=== PATIENT | male | born 1955 | race Two or more races ===

== ENCOUNTER 2018-07-29 16:52 | Inpatient (IN) | payer SELFPAY ==
[~2018-07-29] VITALS: Ht 175.3 cm; Wt 75.7 kg
[2018-07-29 17:10] VITALS: BP 118/42
[2018-07-29] MEDS ORDERED: Cefepime HCl 1 GM in D5W 55 ML IVPB ONE (17:30)
[2018-07-29] MEDS ORDERED: Acetaminophen 650 MG SUPP RECTAL ONE (17:30)
[2018-07-29] MEDS ORDERED: Vancomycin 1 GM in NS 275 ML IVPB ONE (17:30)
[2018-07-29] MEDS ORDERED: NS 1000ml 1,900 ML IVLG ONE (17:30)
[2018-07-29] MEDS ORDERED: VITAMIN B-1100 MG ORAL (17:33)
[2018-07-29] MEDS ORDERED: AMIODARONE HCL200 MG ORAL (17:33)
[2018-07-29] MEDS ORDERED: DIGOXIN250 MCG ORAL (17:33)
[2018-07-29] MEDS ORDERED: ELIQUIS5 MG PO (17:33)
[2018-07-29] MEDS ORDERED: VITAMIN C500 M1 ORAL (17:33)
[2018-07-29] MEDS ORDERED: AMLODIPINE BESY10 MG ORAL (17:33)
[2018-07-29] MEDS ORDERED: FOLIC ACID1 MG ORAL (17:33)
[2018-07-29 17:50] LABS: HEMATOCRIT 37.9 % (42.0-52.0); HEMOGLOBIN 13.2 G/DL (14.2-18.0); MEAN CORPUSCULAR VOLUME 93 FL (80-99); PLATELET COUNT 191 K/UL (150-450); RED BLOOD COUNT 4.06 M/UL (4.70-6.10); RED CELL DISTRIBUTION WIDTH 12.6 % (11.6-14.8)
[2018-07-29 18:00] LABS: WHITE BLOOD COUNT 22.5 K/UL (4.8-10.8)
[2018-07-29 18:01] LABS: ANION GAP 11 mmol/L (5-15); BLOOD UREA NITROGEN 36 mg/dL (7-18); CALCIUM 9.1 MG/DL (8.5-10.1); CARBON DIOXIDE 26 MMOL/L (21-32); CHLORIDE 96 MMOL/L (98-107); CREATININE 1.8 MG/DL (0.55-1.30); POTASSIUM 3.8 MMOL/L (3.5-5.1); SODIUM 133 MMOL/L (136-145)
[2018-07-29 18:15] LABS: ALANINE AMINOTRANSFERASE 63 U/L (12-78); ALBUMIN 3.3 G/DL (3.4-5.0); ALBUMIN/GLOBULIN RATIO 0.7 (1.0-2.7); ALKALINE PHOSPHATASE 160 U/L (46-116); ASPARTATE AMINO TRANSFERASE 109 U/L (15-37); CKMB 1.6 NG/ML (0.0-3.6); CREATINE KINASE 3254 U/L (26-308)
[2018-07-29 18:34] LABS: APPEARANCE,URINE CLEAR; BILIRUBIN, URINE NEGATIVE (NEGATIVE); GLUCOSE, URINE (UA) NEGATIVE (NEGATIVE); KETONES,URINE NEGATIVE (NEGATIVE); LEUKOCYTE ESTERASE ,URINE NEGATIVE (NEGATIVE); NITRITE,URINE NEGATIVE (NEGATIVE); PH,URINE 5 (4.5-8.0); PROTEIN,URINE 1+ (NEGATIVE); UROBILINOGEN,URINE 1 MG/DL (0.0-1.0)
[2018-07-29 18:36] LABS: COLOR,URINE YELLOW
[2018-07-29 18:47] VITALS: BP 123/40
[2018-07-29 19:31] VITALS: BP 119/47
[2018-07-29] MEDS ORDERED: DOCUSATE SODIU250 MG ORAL (19:40)
--- NOTE | 2018-07-29 20:47 | Emergency Room Report ---
History of Present Illness General Chief Complaint: Fever Source: Patient, Medical Record Present Illness HPI This patient presents from a intermediate facility. The patient was found to have a temp of 103 at the intermediate facility. He also underwent lab work there and was found to have an elevated white blood cell count. The patient himself has no complaints. He has had an intermittent cough but otherwise feels well. He denies chest pain or shortness of breath. He denies abdominal pain. He denies dysuria or hematuria. He has no other complaints. Allergies: Coded Allergies: No Known Allergies (Unverified , 07/29/18) Patient History Past Medical History: see triage record, HTN, CAD, AFib, dementia Social History: Denies: smoking, alcohol use, drug use Reviewed Nursing Documentation: PMH: Agreed; PSxH: Agreed Nursing Documentation-PMH Past Medical History: No History, Except For Hx Cardiac Problems: No - a-fib, muscle weakness, non-pressure chronic ulcer oth R Hx Hypertension: Yes - anemia Review of Systems All Other Systems: negative except mentioned in HPI Physical Exam Vital Signs Date Time Temp Pulse Resp B/P (MAP) Pulse Ox O2 Delivery O2 Flow Rate FiO2 07/29/18 16:49 102.6 60 20 121/55 95 Room Air Sp02 EP Interpretation: reviewed, normal General Appearance: no apparent distress, alert, GCS 15, non-toxic Head: normocephalic, atraumatic Eyes: bilateral eye normal inspection, bilateral eye PERRL ENT: hearing grossly normal, normal pharynx, no angioedema, normal voice Neck: full range of motion, supple/symm/no masses Respiratory: chest non-tender, lungs clear, normal breath sounds, no respiratory distress, no retraction, no accessory muscle use, speaking full sentences Cardiovascular #1: regular rate, rhythm, no edema Gastrointestinal: normal bowel sounds, non tender, soft, non-distended, no guarding, no rebound Rectal: deferred Musculoskeletal: back normal, normal range of motion, swelling - LLE w/ edema, erythema and warmth from foot through just below L. knee. Neurologic: alert, oriented x3, responsive, motor strength/tone normal, sensory intact, speech normal Psychiatric: judgement/insight normal, memory normal, mood/affect normal, no suicidal/homicidal ideation Skin: warm/dry, well hydrated, other - See above in MSK. Medical Decision Making Diagnostic Impression: Primary Impression: Cellulitis Additional Impressions: Sepsis Elevated troponin LYDIA (acute kidney injury) Lactic acidosis ER Course This patient is found to have a left lower extremity cellulitis. He has an elevated white blood cell count, elevated troponin and a lactic acidosis. The patient is given aggressive IV fluids and broad-spectrum antibiotics. He does have an elevated troponin which I suspect is a demand ischemia. EKG shows atrial fibrillation with nonspecific ST segment abnormalities. This patient is admitted for further monitoring, evaluation and treatment. This patient is critically ill. This patient required complex medical decision- making, aggressive intervention, extensive laboratory workup and monitoring. Critical care time: 40 minutes. Laboratory Tests Test 07/29/18 17:20 07/29/18 18:00 White Blood Count 22.5 K/UL (4.8-10.8) *H Red Blood Count 4.06 M/UL (4.70-6.10) L Hemoglobin 13.2 G/DL (14.2-18.0) L Hematocrit 37.9 % (42.0-52.0) L Mean Corpuscular Volume 93 FL (80-99) Mean Corpuscular Hemoglobin 32.5 PG (27.0-31.0) H Mean Corpuscular Hemoglobin Concent 34.9 G/DL (32.0-36.0) Red Cell Distribution Width 12.6 % (11.6-14.8) Platelet Count 191 K/UL (150-450) Mean Platelet Volume 7.9 FL (6.5-10.1) Neutrophils (%) (Auto) % (45.0-75.0) Lymphocytes (%) (Auto) % (20.0-45.0) Monocytes (%) (Auto) % (1.0-10.0) Eosinophils (%) (Auto) % (0.0-3.0) Basophils (%) (Auto) % (0.0-2.0) Differential Total Cells Counted 100 Neutrophils % (Manual) 80 % (45-75) H Lymphocytes % (Manual) 3 % (20-45) L Monocytes % (Manual) 5 % (1-10) Eosinophils % (Manual) 0 % (0-3) Basophils % (Manual) 0 % (0-2) Band Neutrophils 12 % (0-8) H Platelet Estimate Adequate Platelet Morphology Normal Red Blood Cell Morphology Normal Sodium Level 133 MMOL/L (136-145) L Potassium Level 3.8 MMOL/L (3.5-5.1) Chloride Level 96 MMOL/L (98-107) L Carbon Dioxide Level 26 MMOL/L (21-32) Anion Gap 11 mmol/L (5-15) Blood Urea Nitrogen 36 mg/dL (7-18) H Creatinine 1.8 MG/DL (0.55-1.30) H Estimate Glomerular Filtration Rate 38.1 mL/min (>60) Glucose Level 113 MG/DL (74-106) H Lactic Acid Level 2.90 mmol/L (0.4-2.0) H Calcium Level 9.1 MG/DL (8.5-10.1) Total Bilirubin 1.0 MG/DL (0.2-1.0) Aspartate Amino Transferase (AST) 109 U/L (15-37) H Alanine Aminotransferase (ALT) 63 U/L (12-78) Alkaline Phosphatase 160 U/L (46-116) H Total Creatine Kinase 3254 U/L (26-308) H Creatine Kinase MB 1.6 NG/ML (0.0-3.6) Creatine Kinase MB Relative Index 0.0 Troponin I 0.355 ng/mL (0.000-0.056) Total Protein 8.3 G/DL (6.4-8.2) H Albumin 3.3 G/DL (3.4-5.0) L Globulin 5.0 g/dL Albumin/Globulin Ratio 0.7 (1.0-2.7) L Urine Color Yellow Urine Appearance Clear Urine pH 5 (4.5-8.0) Urine Specific [place] 1.015 (1.005-1.035) Urine Protein 1+ (NEGATIVE) H Urine Glucose (UA) Negative (NEGATIVE) Urine Ketones Negative (NEGATIVE) Urine Blood 1+ (NEGATIVE) H Urine Nitrite Negative (NEGATIVE) Urine Bilirubin Negative (NEGATIVE) Urine Urobilinogen 1 MG/DL (0.0-1.0) H Urine Leukocyte Esterase Negative (NEGATIVE) Urine RBC 0-2 /HPF (0 - 0) H Urine WBC 0-2 /HPF (0 - 0) Urine Squamous Epithelial Cells Occasional /LPF Urine Bacteria None /HPF (NONE) Microbiology Date/Time Source Procedure Growth Status 07/29/18 17:20 Nasal Nares Influenza Types A,B Antigen (SAHIL) - Final Complete EKG Diagnostic Results Rate: normal Rhythm: other - A.fib ST Segments: other - flipped T waves and NSST findings. Rhythm Strip Diag. Results EP Interpretation: yes Rate: 60's Rhythm: no PVC's, no ectopy Chest X-Ray Diagnostic Results Chest X-Ray Diagnostic Results : Chest X-Ray Ordered: Yes # of Views/Limited/Complete: 1 View Indication: Other EP Interpretation: Yes Interpretation: no consolidation, no effusion, no acute cardiopulmonary disease Impression: No acute disease Electronically Signed by: Hunter Peters Last Vital Signs Date Time Temp Pulse Resp B/P (MAP) Pulse Ox O2 Delivery O2 Flow Rate FiO2 07/29/18 19:31 99.8 54 22 119/47 97 Room Air Disposition: ADMITTED INPATIENT Condition: Critical Referrals: Randy Dietz MD (PCP) Anna Peters DO Jul 29, 2018 20:47
[2018-07-29 21:40] VITALS: BP 117/52
--- NOTE | 2018-07-29 22:41 | Infectious Diseases Prog Note ---
Assessment/Plan Problems: (1) Cellulitis Assessment & Plan: will start vancomycin and zosyn empirically to cover sepsis , recommend wound care consult (2) Sepsis Assessment & Plan: due to the above , will start vancomycin and zosyn empirically pending blood culture (3) LYDIA (acute kidney injury) Assessment & Plan: due to the above , continue hydration with renally dosed meds as per pharmacy (4) Lactic acidosis Assessment & Plan: due to the above, continue hydration , monitor labs Subjective Allergies: Coded Allergies: No Known Allergies (Unverified , 07/29/18) Objective Vital Signs Last 24 Hour Vital Signs Date Time Temp Pulse Resp B/P (MAP) Pulse Ox O2 Delivery O2 Flow Rate FiO2 07/29/18 19:31 99.8 54 22 119/47 97 Room Air 07/29/18 18:55 101.8 07/29/18 18:47 101.8 60 17 123/40 97 Room Air 07/29/18 17:10 102.5 62 15 118/42 98 Room Air 07/29/18 16:55 62 15 Room Air 07/29/18 16:49 102.6 60 20 121/55 95 Room Air Height (Feet): 5 Height (Inches): 1.00 Weight (Pounds): 140 Microbiology Date/Time Source Procedure Growth Status 07/29/18 17:20 Nasal Nares Influenza Types A,B Antigen (SAHIL) - Final Complete Laboratory Tests Test 07/29/18 17:20 07/29/18 18:00 White Blood Count 22.5 K/UL (4.8-10.8) *H Red Blood Count 4.06 M/UL (4.70-6.10) L Hemoglobin 13.2 G/DL (14.2-18.0) L Hematocrit 37.9 % (42.0-52.0) L Mean Corpuscular Volume 93 FL (80-99) Mean Corpuscular Hemoglobin 32.5 PG (27.0-31.0) H Mean Corpuscular Hemoglobin Concent 34.9 G/DL (32.0-36.0) Red Cell Distribution Width 12.6 % (11.6-14.8) Platelet Count 191 K/UL (150-450) Mean Platelet Volume 7.9 FL (6.5-10.1) Neutrophils (%) (Auto) % (45.0-75.0) Lymphocytes (%) (Auto) % (20.0-45.0) Monocytes (%) (Auto) % (1.0-10.0) Eosinophils (%) (Auto) % (0.0-3.0) Basophils (%) (Auto) % (0.0-2.0) Differential Total Cells Counted 100 Neutrophils % (Manual) 80 % (45-75) H Lymphocytes % (Manual) 3 % (20-45) L Monocytes % (Manual) 5 % (1-10) Eosinophils % (Manual) 0 % (0-3) Basophils % (Manual) 0 % (0-2) Band Neutrophils 12 % (0-8) H Platelet Estimate Adequate Platelet Morphology Normal Red Blood Cell Morphology Normal Sodium Level 133 MMOL/L (136-145) L Potassium Level 3.8 MMOL/L (3.5-5.1) Chloride Level 96 MMOL/L (98-107) L Carbon Dioxide Level 26 MMOL/L (21-32) Anion Gap 11 mmol/L (5-15) Blood Urea Nitrogen 36 mg/dL (7-18) H Creatinine 1.8 MG/DL (0.55-1.30) H Estimat Glomerular Filtration Rate 38.1 mL/min (>60) Glucose Level 113 MG/DL (74-106) H Lactic Acid Level 2.90 mmol/L (0.4-2.0) H Calcium Level 9.1 MG/DL (8.5-10.1) Total Bilirubin 1.0 MG/DL (0.2-1.0) Aspartate Amino Transf (AST/SGOT) 109 U/L (15-37) H Alanine Aminotransferase (ALT/SGPT) 63 U/L (12-78) Alkaline Phosphatase 160 U/L (46-116) H Total Creatine Kinase 3254 U/L (26-308) H Creatine Kinase MB 1.6 NG/ML (0.0-3.6) Creatine Kinase MB Relative Index 0.0 Troponin I 0.355 ng/mL (0.000-0.056) Total Protein 8.3 G/DL (6.4-8.2) H Albumin 3.3 G/DL (3.4-5.0) L Globulin 5.0 g/dL Albumin/Globulin Ratio 0.7 (1.0-2.7) L Urine Color Yellow Urine Appearance Clear Urine pH 5 (4.5-8.0) Urine Specific [place] 1.015 (1.005-1.035) Urine Protein 1+ (NEGATIVE) H Urine Glucose (UA) Negative (NEGATIVE) Urine Ketones Negative (NEGATIVE) Urine Blood 1+ (NEGATIVE) H Urine Nitrite Negative (NEGATIVE) Urine Bilirubin Negative (NEGATIVE) Urine Urobilinogen 1 MG/DL (0.0-1.0) H Urine Leukocyte Esterase Negative (NEGATIVE) Urine RBC 0-2 /HPF (0 - 0) H Urine WBC 0-2 /HPF (0 - 0) Urine Squamous Epithelial Cells Occasional /LPF Urine Bacteria None /HPF (NONE) Beverley Danielson M.D. Jul 29, 2018 22:41
[2018-07-29] MEDS ORDERED: Morphine Sulfate 2mg/ml Inj IVP PRN (23:00)
[2018-07-30] VITALS: BP 114/50
[2018-07-30 04:00] VITALS: BP 147/65
[2018-07-30] MEDS ORDERED: Piperacillin/Tazobactam 2.25 GM in NS 55 ML IV SCH (06:00)
[2018-07-30] MEDS ORDERED: Piperacillin/Tazobactam 3.375 GM in D5W 110 ML IVPB SCH (06:00)
[2018-07-30] MEDS: Piperacillin/Tazobactam 3.375 GM in NS 110 ML IVPB SCH ×3 (06:09→23:01)
[2018-07-30 06:49] LABS: HEMATOCRIT 35.1 % (42.0-52.0); HEMOGLOBIN 12.1 G/DL (14.2-18.0); MEAN CORPUSCULAR VOLUME 92 FL (80-99); PLATELET COUNT 151 K/UL (150-450); RED BLOOD COUNT 3.82 M/UL (4.70-6.10); RED CELL DISTRIBUTION WIDTH 12.9 % (11.6-14.8); WHITE BLOOD COUNT 17.1 K/UL (4.8-10.8)
[2018-07-30 07:11] LABS: ALANINE AMINOTRANSFERASE 69 U/L (12-78); ALBUMIN 2.6 G/DL (3.4-5.0); ALBUMIN/GLOBULIN RATIO 0.6 (1.0-2.7); ALKALINE PHOSPHATASE 122 U/L (46-116); ANION GAP 6 mmol/L (5-15); ASPARTATE AMINO TRANSFERASE 116 U/L (15-37); BILIRUBIN,TOTAL 0.8 MG/DL (0.2-1.0); BLOOD UREA NITROGEN 24 mg/dL (7-18); CALCIUM 8.2 MG/DL (8.5-10.1); CARBON DIOXIDE 27 MMOL/L (21-32); CHLORIDE 106 MMOL/L (98-107); CHOLESTEROL 127 MG/DL (< 200); CREATININE 1.3 MG/DL (0.55-1.30); HDL CHOLESTEROL 47 MG/DL (40-60); POTASSIUM 3.6 MMOL/L (3.5-5.1); SODIUM 139 MMOL/L (136-145); TRIGLYCERIDES 55 MG/DL (30-150)
[2018-07-30 08:00] VITALS: BP 139/68
[2018-07-30] MEDS ORDERED: Aspirin Baby 81mg NG SCH (09:00)
[2018-07-30] MEDS ORDERED: Heparin 5000 units/ml inj SUBQ SCH (09:00)
[2018-07-30] MEDS: Aspirin Baby 81mg ORAL SCH (09:05)
[2018-07-30] MEDS: Thiamine 100mg tab ORAL SCH (09:05)
[2018-07-30] MEDS: Docusate 250mg cap ORAL SCH ×2 (09:06→17:03)
[2018-07-30] MEDS: Eliquis 2.5mg tablet ORAL SCH ×2 (09:06→17:03)
[2018-07-30] MEDS: Amiodarone 200mg tab ORAL SCH ×2 (09:06→20:46)
[2018-07-30] MEDS: Ascorbic Acid 500mg tab ORAL SCH ×2 (09:07→17:02)
--- NOTE | 2018-07-30 11:07 | Diagnostic Imaging Report ---
Indication: Dyspnea Comparison: None A single view chest radiograph was obtained. Findings: No definite infiltrate or pulmonary vascular congestion identified. Lung volumes are low which limits evaluation. The heart is enlarged. The bones are osteopenic. Impression: No acute disease
[2018-07-30 12:00] VITALS: BP 101/46
--- NOTE | 2018-07-30 12:48 | History & Physical ---
History and Physical History & Physicial patient is seen and examined. Dict completed Randy Dietz MD Jul 30, 2018 12:48
--- NOTE | 2018-07-30 15:15 | History and Physical Report ---
DATE OF ADMISSION: 07/29/2018 SOURCE OF INFORMATION: The patient and EMR. HISTORY OF PRESENT ILLNESS: The patient is a pleasant 63-year-old [place] male. The patient reported with the high fever, was transferred from the alf regarding the concerns for fever. Initial evaluation in the emergency room shows that the patient had a leukocyte count of 22. The patient was managed according to sepsis protocol. At the time of evaluation, the patient denies any chest pain or shortness of breath. Complaining of diffuse swelling on the lower extremities. The patient denies any chest pain or shortness of breath. No nausea. No vomiting. No diarrhea. ALLERGIES: NKDA. PAST SURGICAL HISTORY: Denies. PAST MEDICAL HISTORY: Atrial fibrillation and anemia. FAMILY HISTORY: Reviewed and noncontributory. MEDICATIONS: Current hospital medications including, but not limited to, Tylenol, amiodarone, amlodipine, Eliquis, aspirin, digoxin, and morphine p.r.n. PHYSICAL EXAMINATION: VITAL SIGNS: Blood pressure , temperature 98.2, pulse oximetry 98% on room air, pulse rate 55, and respiratory rate 18. HEAD AND NECK: Atraumatic and normocephalic. CHEST: Clear to auscultation. HEART: S1 and S2. Regular rate and rhythm. ABDOMEN: Soft. No organomegaly. MUSCULOSKELETAL: No gross lateralized motor deficits. Positive for diffuse erythema in the lower extremities. NEUROLOGIC: Awake, alert, and oriented x3. LABORATORY DATA: Dated July 29, 2018, shows WBC 22, hemoglobin 13.2, platelet count of 190. Sodium 139, potassium 3.6, BUN 24, creatinine 1.3. Troponin of 0.3. ASSESSMENT AND PLAN: 1. Sepsis likely lower extremity cellulitis. 2. Abnormal troponin possibly of non-ST NV cannot be excluded. 3. History of paroxysmal atrial fibrillation. Continue with the outpatient medication. 4. Anemia. 5. Hypertension. 6. GI and DVT prophylaxis. PLAN OF CARE: We will continue with the oral anticoagulation. We will continue with serial troponin measurements. We will obtain a 2D echo. Cardiology, Dr. Florian, consulted. Will follow up. Randy Dietz M.D. DR: RAY JOB#: [id number] CC:
[2018-07-30 16:00] VITALS: BP 112/50
--- NOTE | 2018-07-30 16:13 | Infectious Diseases Prog Note ---
Assessment/Plan Problems: (1) Cellulitis Assessment & Plan: continue vancomycin and zosyn empirically to cover sepsis, continue local wound care as per hospital protocol (2) Sepsis Assessment & Plan: with gram positive cocci in chains , due to the above , continue vancomycin and zosyn empirically pending blood culture (3) LYDIA (acute kidney injury) Assessment & Plan: due to the above , continue hydration with renally dosed meds as per pharmacy (4) Lactic acidosis Assessment & Plan: due to the above, continue hydration , monitor labs Subjective Constitutional: Reports: no symptoms HEENT: Reports: no symptoms Respiratory: Reports: no symptoms Breasts: Reports: no symptoms Cardiovascular: Reports: no symptoms Genitourinary: Reports: no symptoms Neurologic: Reports: no symptoms Psychiatric: Reports: no symptoms Skin: Reports: ulcer Endocrine: Reports: no symptoms Hematologic: Reports: no symptoms Allergies: Coded Allergies: No Known Allergies (Unverified , 07/29/18) Objective Vital Signs Last 24 Hour Vital Signs Date Time Temp Pulse Resp B/P (MAP) Pulse Ox O2 Delivery O2 Flow Rate FiO2 07/30/18 12:00 97.0 75 20 101/46 (64) 98 07/30/18 12:00 57 07/30/18 09:09 61 07/30/18 09:06 61 139/68 07/30/18 09:00 Nasal Cannula 2.0 07/30/18 08:00 98.0 61 20 139/68 (91) 98 07/30/18 08:00 58 07/30/18 04:00 58 07/30/18 04:00 99.2 59 20 147/65 (92) 96 07/30/18 00:00 53 07/30/18 00:00 98.2 52 20 114/50 (71) 97 07/29/18 23:33 Nasal Cannula 2.0 07/29/18 21:58 55 07/29/18 21:40 99.0 56 20 117/52 (73) 95 07/29/18 21:30 99.8 54 22 119/97 97 Room Air 07/29/18 19:31 99.8 54 22 119/47 97 Room Air 07/29/18 18:55 101.8 07/29/18 18:47 101.8 60 17 123/40 97 Room Air 07/29/18 17:10 102.5 62 15 118/42 98 Room Air 07/29/18 16:55 62 15 Room Air 07/29/18 16:49 102.6 60 20 121/55 95 Room Air Height (Feet): 5 Height (Inches): 9.00 Weight (Pounds): 167 General Appearance: WD/WN, no acute distress HEENT: normocephalic, atraumatic, anicteric, mucous membranes moist Respiratory/Chest: chest wall non-tender, lungs clear, normal breath sounds, no respiratory distress, no accessory muscle use Cardiovascular: normal peripheral pulses, normal rate, regular rhythm, no gallop/murmur, no JVD Abdomen: normal bowel sounds, soft, non tender, no organomegaly, non distended , no mass, no scars Extremities: no cyanosis, no clubbing Skin: no rash, ulcers Microbiology Date/Time Source Procedure Growth Status 07/29/18 17:25 Blood Blood Culture - Preliminary Resulted 07/29/18 17:20 Blood Blood Culture - Preliminary Resulted 07/29/18 17:20 Nasal Nares Influenza Types A,B Antigen (SAHIL) - Final Complete Laboratory Tests Test 07/29/18 17:20 07/29/18 18:00 07/30/18 06:20 07/30/18 11:50 White Blood Count 22.5 K/UL (4.8-10.8) *H 17.1 K/UL (4.8-10.8) H Red Blood Count 4.06 M/UL (4.70-6.10) L 3.82 M/UL (4.70-6.10) L Hemoglobin 13.2 G/DL (14.2-18.0) L 12.1 G/DL (14.2-18.0) L Hematocrit 37.9 % (42.0-52.0) L 35.1 % (42.0-52.0) L Mean Corpuscular Volume 93 FL (80-99) 92 FL (80-99) Mean Corpuscular Hemoglobin 32.5 PG (27.0-31.0) H 31.7 PG (27.0-31.0) H Mean Corpuscular Hemoglobin Concent 34.9 G/DL (32.0-36.0) 34.5 G/DL (32.0-36.0) Red Cell Distribution Width 12.6 % (11.6-14.8) 12.9 % (11.6-14.8) Platelet Count 191 K/UL (150-450) 151 K/UL (150-450) Mean Platelet Volume 7.9 FL (6.5-10.1) 7.8 FL (6.5-10.1) Neutrophils (%) (Auto) % (45.0-75.0) % (45.0-75.0) Lymphocytes (%) (Auto) % (20.0-45.0) % (20.0-45.0) Monocytes (%) (Auto) % (1.0-10.0) % (1.0-10.0) Eosinophils (%) (Auto) % (0.0-3.0) % (0.0-3.0) Basophils (%) (Auto) % (0.0-2.0) % (0.0-2.0) Differential Total Cells Counted 100 100 Neutrophils % (Manual) 80 % (45-75) H 87 % (45-75) H Lymphocytes % (Manual) 3 % (20-45) L 4 % (20-45) L Monocytes % (Manual) 5 % (1-10) 4 % (1-10) Eosinophils % (Manual) 0 % (0-3) 0 % (0-3) Basophils % (Manual) 0 % (0-2) 0 % (0-2) Band Neutrophils 12 % (0-8) H 5 % (0-8) Platelet Estimate Adequate Adequate Platelet Morphology Normal Normal Red Blood Cell Morphology Normal Normal Sodium Level 133 MMOL/L (136-145) L 139 MMOL/L (136-145) Potassium Level 3.8 MMOL/L (3.5-5.1) 3.6 MMOL/L (3.5-5.1) Chloride Level 96 MMOL/L (98-107) L 106 MMOL/L (98-107) Carbon Dioxide Level 26 MMOL/L (21-32) 27 MMOL/L (21-32) Anion Gap 11 mmol/L (5-15) 6 mmol/L (5-15) Blood Urea Nitrogen 36 mg/dL (7-18) H 24 mg/dL (7-18) H Creatinine 1.8 MG/DL (0.55-1.30) H 1.3 MG/DL (0.55-1.30) Estimat Glomerular Filtration Rate 38.1 mL/min (>60) 55.4 mL/min (>60) Glucose Level 113 MG/DL (74-106) H 101 MG/DL (74-106) Lactic Acid Level 2.90 mmol/L (0.4-2.0) H Calcium Level 9.1 MG/DL (8.5-10.1) 8.2 MG/DL (8.5-10.1) L Total Bilirubin 1.0 MG/DL (0.2-1.0) 0.8 MG/DL (0.2-1.0) Aspartate Amino Transf (AST/SGOT) 109 U/L (15-37) H 116 U/L (15-37) H Alanine Aminotransferase (ALT/SGPT) 63 U/L (12-78) 69 U/L (12-78) Alkaline Phosphatase 160 U/L (46-116) H 122 U/L (46-116) H Total Creatine Kinase 3254 U/L (26-308) H Creatine Kinase MB 1.6 NG/ML (0.0-3.6) Creatine Kinase MB Relative Index 0.0 Troponin I 0.355 ng/mL (0.000-0.056) 0.219 ng/mL (0.000-0.056) 0.149 ng/mL (0.000-0.056) Total Protein 8.3 G/DL (6.4-8.2) H 6.8 G/DL (6.4-8.2) Albumin 3.3 G/DL (3.4-5.0) L 2.6 G/DL (3.4-5.0) L Globulin 5.0 g/dL 4.2 g/dL Albumin/Globulin Ratio 0.7 (1.0-2.7) L 0.6 (1.0-2.7) L Urine Color Yellow Urine Appearance Clear Urine pH 5 (4.5-8.0) Urine Specific [place] 1.015 (1.005-1.035) Urine Protein 1+ (NEGATIVE) H Urine Glucose (UA) Negative (NEGATIVE) Urine Ketones Negative (NEGATIVE) Urine Blood 1+ (NEGATIVE) H Urine Nitrite Negative (NEGATIVE) Urine Bilirubin Negative (NEGATIVE) Urine Urobilinogen 1 MG/DL (0.0-1.0) H Urine Leukocyte Esterase Negative (NEGATIVE) Urine RBC 0-2 /HPF (0 - 0) H Urine WBC 0-2 /HPF (0 - 0) Urine Squamous Epithelial Cells Occasional /LPF Urine Bacteria None /HPF (NONE) Hemoglobin A1c 5.7 % (4.3-6.0) Triglycerides Level 55 MG/DL (30-150) Cholesterol Level 127 MG/DL (< 200) LDL Cholesterol 73 mg/dL (<100) HDL Cholesterol 47 MG/DL (40-60) Cholesterol/HDL Ratio 2.7 (3.3-4.4) L Current Medications Medications (Trade) Dose Ordered Sig/Gomez Route PRN Reason Start Time Stop Time Status Last Admin Dose Admin Acetaminophen (Tylenol) 650 mg Q4H PRN ORAL Mild Pain/Temp > 100.5 07/29/18 23:00 08/28/18 22:59 07/30/18 06:52 Amiodarone HCl (Cordarone) 200 mg EVERY 12 HOURS ORAL 07/30/18 09:00 08/29/18 08:59 07/30/18 09:06 Amlodipine Besylate (Norvasc) 10 mg DAILY ORAL 07/30/18 09:00 08/29/18 08:59 07/30/18 09:06 Apixaban (Eliquis) 5 mg BID ORAL 07/30/18 09:00 08/29/18 08:59 07/30/18 09:06 Ascorbic Acid (Vitamin C) 500 mg TWICE A DAY ORAL 07/30/18 09:00 08/29/18 08:59 07/30/18 09:07 Aspirin (ASA) 81 mg DAILY ORAL 07/30/18 09:00 08/29/18 08:59 07/30/18 09:05 Digoxin (Lanoxin) 0.25 mg DAILY ORAL 07/30/18 09:00 08/29/18 08:59 07/30/18 09:09 Docusate Sodium (Colace) 250 mg TWICE A DAY ORAL 07/30/18 09:00 08/29/18 08:59 07/30/18 09:06 Folic Acid (Folate) 1 mg DAILY ORAL 07/30/18 09:00 08/29/18 08:59 07/30/18 09:07 Morphine Sulfate (Morphine Sulfate) 2 mg Q8HR PRN IVP For Pain 07/29/18 23:00 08/05/18 22:59 Pantoprazole (Protonix) 40 mg DAILY ORAL 07/30/18 09:00 08/29/18 08:59 07/30/18 09:06 Piperacillin Sod/ Tazobactam Sod 3.375 gm/Sodium Chloride 110 ml @ 27.5 mls/hr EVERY 8 HOURS IVPB 07/30/18 06:00 08/04/18 05:59 07/30/18 13:30 Thiamine HCl (Vitamin B1) 100 mg DAILY ORAL 07/30/18 09:00 08/29/18 08:59 07/30/18 09:05 Beverley Danielson M.D. Jul 30, 2018 16:13
[2018-07-30] MEDS ORDERED: Vancomycin 1250mg/D5W 250ml 250 ML IVPB SCH (17:30)
--- NOTE | 2018-07-30 19:15 | Consultation ---
DATE OF CONSULTATION: 07/30/2018 INFECTIOUS DISEASE CONSULTATION CONSULTING PHYSICIAN: Beverley Danielson M.D. REFERRING PHYSICIAN: Randy Dietz M.D. REASON FOR CONSULTATION: Left leg cellulitis complicated with sepsis. Recommendation for antibiotics treatment. HISTORY OF PRESENT ILLNESS: The patient is a 63-year-old male with past medical history of atrial fibrillation and anemia, who was brought in from his [facility] for concern of fever. The patient was found to have significant leukocytosis in the emergency room concerning for sepsis and his skin showed left posterior heel wound with cellulitis on the left side, most likely the source, so the patient was started on sepsis protocol and IV antibiotics, and Infectious Disease consultation was requested for antibiotics treatment and further management. REVIEW OF SYSTEMS: A 14-point of systems reviewed, were all negative. PAST MEDICAL HISTORY: Atrial fibrillation and anemia. PAST SURGICAL HISTORY: Negative. ALLERGIES: No known drug allergy. MEDICATIONS: The patient received vancomycin and cefepime in the emergency room. For rest of his medications, please refer to MAR. LABORATORY DATA: White count 22,500, hemoglobin 13.2, and platelet count 191,000. BUN 24, creatinine 1.3. Lactic acid 2.9. Urinalysis is negative for infection. Microbiology - blood culture x2 pending and influenza A and B type negative. Imaging - chest x-ray showed no acute disease. PHYSICAL EXAMINATION: VITAL SIGNS: Temperature 101.8, pulse 60, respirations 17, and blood pressure 123/40. Pulse ox 97% on room air. GENERAL: A middle-aged male, lying in bed, awake, alert, pleasant, not in acute distress. HEENT: Normocephalic and atraumatic. Pupils are reactive to light. Moist oral mucosa. NECK: Supple. CARDIOVASCULAR: Regular rate and rhythm. No murmur. LUNGS: Clear bilaterally. No wheezing or rhonchi. ABDOMEN: Soft, nontender, and nondistended. EXTREMITIES: He has cellulitis mainly on the left lower leg and ankle with left posterior foot skin wound draining purulent material. ASSESSMENT AND RECOMMENDATION: 1. Cellulitis of the left lower extremity. We will start vancomycin and Zosyn empiric coverage to cover for sepsis pending blood culture. Recommend wound care consult. 2. Sepsis with leukocytosis due to the above. We will start vancomycin and Zosyn empiric coverage pending blood culture. 3. Acute kidney failure due to sepsis and dehydration. Continue IV fluid and renally dose medicine as per pharmacy. 4. Lactic acidosis due to the above. Continue hydration, monitor labs. Thank you for the consult. ID will continue to follow. Beverley Danielson M.D. DR: ELDER JOB#: [id number] CC:
--- NOTE | 2018-07-30 19:30 | Cardiology Progress Note ---
Assessment/Plan Assessment/Plan The patient is seen and examined, full consult note will be dictated shortly. Objective Last 24 Hour Vital Signs Date Time Temp Pulse Resp B/P (MAP) Pulse Ox O2 Delivery O2 Flow Rate FiO2 07/30/18 16:00 98.3 52 18 112/50 (70) 99 07/30/18 16:00 53 07/30/18 12:00 97.0 75 20 101/46 (64) 98 07/30/18 12:00 57 07/30/18 09:09 61 07/30/18 09:06 61 139/68 07/30/18 09:00 Nasal Cannula 2.0 07/30/18 08:00 98.0 61 20 139/68 (91) 98 07/30/18 08:00 58 07/30/18 04:00 58 07/30/18 04:00 99.2 59 20 147/65 (92) 96 07/30/18 00:00 53 07/30/18 00:00 98.2 52 20 114/50 (71) 97 07/29/18 23:33 Nasal Cannula 2.0 07/29/18 21:58 55 07/29/18 21:40 99.0 56 20 117/52 (73) 95 07/29/18 21:30 99.8 54 22 119/97 97 Room Air 07/29/18 19:31 99.8 54 22 119/47 97 Room Air Intake and Output 07/29/18 07/30/18 19:00 07:00 # Voids 1 1 Laboratory Tests Test 07/30/18 06:20 07/30/18 11:50 White Blood Count 17.1 K/UL (4.8-10.8) H Red Blood Count 3.82 M/UL (4.70-6.10) L Hemoglobin 12.1 G/DL (14.2-18.0) L Hematocrit 35.1 % (42.0-52.0) L Mean Corpuscular Volume 92 FL (80-99) Mean Corpuscular Hemoglobin 31.7 PG (27.0-31.0) H Mean Corpuscular Hemoglobin Concent 34.5 G/DL (32.0-36.0) Red Cell Distribution Width 12.9 % (11.6-14.8) Platelet Count 151 K/UL (150-450) Mean Platelet Volume 7.8 FL (6.5-10.1) Neutrophils (%) (Auto) % (45.0-75.0) Lymphocytes (%) (Auto) % (20.0-45.0) Monocytes (%) (Auto) % (1.0-10.0) Eosinophils (%) (Auto) % (0.0-3.0) Basophils (%) (Auto) % (0.0-2.0) Differential Total Cells Counted 100 Neutrophils % (Manual) 87 % (45-75) H Lymphocytes % (Manual) 4 % (20-45) L Monocytes % (Manual) 4 % (1-10) Eosinophils % (Manual) 0 % (0-3) Basophils % (Manual) 0 % (0-2) Band Neutrophils 5 % (0-8) Platelet Estimate Adequate Platelet Morphology Normal Red Blood Cell Morphology Normal Sodium Level 139 MMOL/L (136-145) Potassium Level 3.6 MMOL/L (3.5-5.1) Chloride Level 106 MMOL/L (98-107) Carbon Dioxide Level 27 MMOL/L (21-32) Anion Gap 6 mmol/L (5-15) Blood Urea Nitrogen 24 mg/dL (7-18) H Creatinine 1.3 MG/DL (0.55-1.30) Estimat Glomerular Filtration Rate 55.4 mL/min (>60) Glucose Level 101 MG/DL (74-106) Hemoglobin A1c 5.7 % (4.3-6.0) Calcium Level 8.2 MG/DL (8.5-10.1) L Total Bilirubin 0.8 MG/DL (0.2-1.0) Aspartate Amino Transf (AST/SGOT) 116 U/L (15-37) H Alanine Aminotransferase (ALT/SGPT) 69 U/L (12-78) Alkaline Phosphatase 122 U/L (46-116) H Troponin I 0.219 ng/mL (0.000-0.056) 0.149 ng/mL (0.000-0.056) Total Protein 6.8 G/DL (6.4-8.2) Albumin 2.6 G/DL (3.4-5.0) L Globulin 4.2 g/dL Albumin/Globulin Ratio 0.6 (1.0-2.7) L Triglycerides Level 55 MG/DL (30-150) Cholesterol Level 127 MG/DL (< 200) LDL Cholesterol 73 mg/dL (<100) HDL Cholesterol 47 MG/DL (40-60) Cholesterol/HDL Ratio 2.7 (3.3-4.4) L Microbiology Date/Time Source Procedure Growth Status 07/29/18 17:25 Blood Blood Culture - Preliminary Resulted 07/29/18 17:20 Blood Blood Culture - Preliminary Resulted 07/29/18 17:20 Nasal Nares Influenza Types A,B Antigen (SAHIL) - Final Complete Mehdi Florian MD Jul 30, 2018 19:30
[2018-07-30 20:00] VITALS: BP 121/53
[2018-07-30] MEDS ORDERED: LORazepam 1mg tab ORAL PRN (20:30)
--- NOTE | 2018-07-30 20:35 | Consultation ---
History of Present Illness General Date patient seen: Jul 30, 2018 Chief Complaint: Fever Present Illness HPI 63-year-old male who was admitted with the high fever, was transferred from the intermediate regarding the concerns for fever. The pt was a poor historian and was confused about the date/ the pt was able to answer the questions. no si/ hi the pt has anxiety Allergies: Coded Allergies: No Known Allergies (Unverified , 07/29/18) Medication History Scheduled Amiodarone Hcl* (Cordarone*), 200 MG ORAL EVERY 12 HOURS, (Reported) Amlodipine Besylate* (Amlodipine Besylate*), 10 MG ORAL DAILY, (Reported) Apixaban (Eliquis), 5 MG PO BID, (Reported) Ascorbic Acid* (Vitamin C*), 500 MG ORAL TWICE A DAY, (Reported) Digoxin* (Digoxin*), 0.25 MG ORAL DAILY, (Reported) Docusate Sodium* (Docusate Sodium*), 250 MG ORAL TWICE A DAY, (Reported) Folic Acid* (Folic Acid*), 1 MG ORAL DAILY, (Reported) Thiamine Hcl* (Vitamin B-1*), 100 MG ORAL DAILY, (Reported) Patient History Limited by: medical condition History Provided By: Patient, Medical Record, PMD Healthcare decision maker Resuscitation status Full Code Advanced Directive on File No Past Medical/Surgical History Past Medical/Surgical History: (1) Elevated troponin (2) Fever (3) Fever of unknown origin (4) Fever with chills (5) Lactic acidosis (6) Cellulitis (7) Sepsis (8) LYDIA (acute kidney injury) Review of Systems Psychiatric: Reports: prior hx, anxiety, depressed feelings, emotional problems Physical Exam General Appearance: no apparent distress, alert Neurologic: responsive, depressed affect Last 24 Hour Vital Signs Date Time Temp Pulse Resp B/P (MAP) Pulse Ox O2 Delivery O2 Flow Rate FiO2 07/30/18 16:00 98.3 52 18 112/50 (70) 99 07/30/18 16:00 53 07/30/18 12:00 97.0 75 20 101/46 (64) 98 07/30/18 12:00 57 07/30/18 09:09 61 07/30/18 09:06 61 139/68 07/30/18 09:00 Nasal Cannula 2.0 07/30/18 08:00 98.0 61 20 139/68 (91) 98 07/30/18 08:00 58 07/30/18 04:00 58 07/30/18 04:00 99.2 59 20 147/65 (92) 96 07/30/18 00:00 53 07/30/18 00:00 98.2 52 20 114/50 (71) 97 07/29/18 23:33 Nasal Cannula 2.0 07/29/18 21:58 55 07/29/18 21:40 99.0 56 20 117/52 (73) 95 07/29/18 21:30 99.8 54 22 119/97 97 Room Air Intake and Output 07/29/18 07/30/18 19:00 07:00 # Voids 1 1 Laboratory Tests Test 07/30/18 06:20 07/30/18 11:50 White Blood Count 17.1 K/UL (4.8-10.8) H Red Blood Count 3.82 M/UL (4.70-6.10) L Hemoglobin 12.1 G/DL (14.2-18.0) L Hematocrit 35.1 % (42.0-52.0) L Mean Corpuscular Volume 92 FL (80-99) Mean Corpuscular Hemoglobin 31.7 PG (27.0-31.0) H Mean Corpuscular Hemoglobin Concent 34.5 G/DL (32.0-36.0) Red Cell Distribution Width 12.9 % (11.6-14.8) Platelet Count 151 K/UL (150-450) Mean Platelet Volume 7.8 FL (6.5-10.1) Neutrophils (%) (Auto) % (45.0-75.0) Lymphocytes (%) (Auto) % (20.0-45.0) Monocytes (%) (Auto) % (1.0-10.0) Eosinophils (%) (Auto) % (0.0-3.0) Basophils (%) (Auto) % (0.0-2.0) Differential Total Cells Counted 100 Neutrophils % (Manual) 87 % (45-75) H Lymphocytes % (Manual) 4 % (20-45) L Monocytes % (Manual) 4 % (1-10) Eosinophils % (Manual) 0 % (0-3) Basophils % (Manual) 0 % (0-2) Band Neutrophils 5 % (0-8) Platelet Estimate Adequate Platelet Morphology Normal Red Blood Cell Morphology Normal Sodium Level 139 MMOL/L (136-145) Potassium Level 3.6 MMOL/L (3.5-5.1) Chloride Level 106 MMOL/L (98-107) Carbon Dioxide Level 27 MMOL/L (21-32) Anion Gap 6 mmol/L (5-15) Blood Urea Nitrogen 24 mg/dL (7-18) H Creatinine 1.3 MG/DL (0.55-1.30) Estimat Glomerular Filtration Rate 55.4 mL/min (>60) Glucose Level 101 MG/DL (74-106) Hemoglobin A1c 5.7 % (4.3-6.0) Calcium Level 8.2 MG/DL (8.5-10.1) L Total Bilirubin 0.8 MG/DL (0.2-1.0) Aspartate Amino Transf (AST/SGOT) 116 U/L (15-37) H Alanine Aminotransferase (ALT/SGPT) 69 U/L (12-78) Alkaline Phosphatase 122 U/L (46-116) H Troponin I 0.219 ng/mL (0.000-0.056) 0.149 ng/mL (0.000-0.056) Total Protein 6.8 G/DL (6.4-8.2) Albumin 2.6 G/DL (3.4-5.0) L Globulin 4.2 g/dL Albumin/Globulin Ratio 0.6 (1.0-2.7) L Triglycerides Level 55 MG/DL (30-150) Cholesterol Level 127 MG/DL (< 200) LDL Cholesterol 73 mg/dL (<100) HDL Cholesterol 47 MG/DL (40-60) Cholesterol/HDL Ratio 2.7 (3.3-4.4) L Height (Feet): 5 Height (Inches): 9.00 Weight (Pounds): 167 Medications Current Medications Medications (Trade) Dose Ordered Sig/Gomez Route PRN Reason Start Time Stop Time Status Last Admin Dose Admin Acetaminophen (Tylenol) 650 mg Q4H PRN ORAL Mild Pain/Temp > 100.5 07/29/18 23:00 08/28/18 22:59 07/30/18 06:52 Amiodarone HCl (Cordarone) 200 mg EVERY 12 HOURS ORAL 07/30/18 09:00 12/2/18 08:59 07/30/18 09:06 Amlodipine Besylate (Norvasc) 10 mg DAILY ORAL 07/30/18 09:00 08/29/18 08:59 07/30/18 09:06 Apixaban (Eliquis) 5 mg BID ORAL 07/30/18 09:00 08/29/18 08:59 07/30/18 17:03 Ascorbic Acid (Vitamin C) 500 mg TWICE A DAY ORAL 07/30/18 09:00 08/29/18 08:59 07/30/18 17:02 Aspirin (ASA) 81 mg DAILY ORAL 07/30/18 09:00 08/29/18 08:59 07/30/18 09:05 Digoxin (Lanoxin) 0.25 mg DAILY ORAL 07/30/18 09:00 08/29/18 08:59 07/30/18 09:09 Docusate Sodium (Colace) 250 mg TWICE A DAY ORAL 07/30/18 09:00 08/29/18 08:59 07/30/18 17:03 Folic Acid (Folate) 1 mg DAILY ORAL 07/30/18 09:00 08/29/18 08:59 07/30/18 09:07 Morphine Sulfate (Morphine Sulfate) 2 mg Q8HR PRN IVP For Pain 07/29/18 23:00 08/05/18 22:59 Pantoprazole (Protonix) 40 mg DAILY ORAL 07/30/18 09:00 08/29/18 08:59 07/30/18 09:06 Piperacillin Sod/ Tazobactam Sod 3.375 gm/Sodium Chloride 110 ml @ 27.5 mls/hr EVERY 8 HOURS IVPB 07/30/18 06:00 08/04/18 05:59 07/30/18 13:30 Thiamine HCl (Vitamin B1) 100 mg DAILY ORAL 07/30/18 09:00 08/29/18 08:59 07/30/18 09:05 Assessment/Plan Assessment/Plan anxiety d/o ativan prn restoril prn Isabel Tse MD Jul 30, 2018 20:35
[2018-07-31] VITALS: BP 127/54
--- NOTE | 2018-07-31 00:45 | Consultation ---
DATE OF CONSULTATION: 07/30/2018 CARDIOLOGY CONSULTATION CONSULTING PHYSICIAN: Mehdi Florian M.D. REFERRING PHYSICIAN: Randy Dietz M.D. REASON FOR CONSULTATION: Management of elevated troponin I level. HISTORY OF PRESENT ILLNESS: The patient is a very unfortunate 63-year-old gentleman, who presents from [facility] facility with temperature of 103 and leukocytosis. The patient at the time of arrival to the hospital had complaints of intermittent cough, but no chest pain or shortness of breath. His medical history is significant for history of hypertension, coronary artery disease, paroxysmal atrial fibrillation, dementia, and anemia. At the time of arrival to the hospital, blood pressure was 121/55 mmHg and heart rate of 60. Initial laboratory finding at [facility] confirmed leukocytosis of 22.5. The BUN and creatinine was 36 and 1.8 respectively. His first troponin I level was elevated at 0.355. A 12-lead electrocardiogram was significant for sinus bradycardia, rate of 55. The first-degree AV block and nonspecific ST and T-wave abnormalities and QT interval of 348 millisecond. The patient was admitted to telemetry for further evaluation and management. Cardiology consultation was made to address elevated troponin I level as well as renal failure and sepsis. PAST MEDICAL HISTORY: 1. Hypertension. 2. CAD. 3. Paroxysmal atrial fibrillation. 4. Dementia. 5. Anemia. 6. Muscle weakness. PAST SURGICAL HISTORY: None. ALLERGIES: No known drug allergies. MEDICATIONS: List of medication including amiodarone 200 mg twice daily, amlodipine 10 mg p.o. daily, apixaban 5 mg p.o. twice daily, vitamin C 500 mg twice daily, digoxin 0.25 mg p.o. daily, Colace 250 mg twice daily, folic acid 1 mg p.o. daily, and thiamine 100 mg p.o. daily. SOCIAL HISTORY: Denies any tobacco, alcohol, or illicit drug use. FAMILY HISTORY: No premature coronary artery disease in first-degree relatives. REVIEW OF SYSTEMS: HEENT: Denies any headache, diplopia, or blurred vision. CONSTITUTIONAL: Complained of fever and chills. No night sweats or weight loss. CARDIOVASCULAR: Denies any chest pain, shortness breath, PND, orthopnea, or leg swelling. PULMONARY: He has complained of cough, but no shortness of breath or wheezing. GASTROINTESTINAL: Denies any nausea, vomiting, diarrhea, constipation, abdominal pain, or GI bleed. GENITOURINARY: Denies any dysuria, incontinence, or hematuria. NEUROLOGIC: Denies any motor dysfunction, sensory deficit, or altered speech. MUSCULOSKELETAL: Complained of left lower extremity erythema and warmth around the foot up to the left leg. PHYSICAL EXAMINATION: VITAL SIGNS: Blood pressure was 121/55, pulse of 60, respirations 20, temperature 102.6 degrees Fahrenheit, and O2 saturation 95% on room air. GENERAL: The patient is a very unfortunate 63-year-old gentleman, seen in Cardiology consultation. No apparent respiratory distress. HEENT: Atraumatic and normocephalic. Anicteric. Pupils are equal, round, and reactive to light and accommodation. Extraocular muscles intact. NECK: JVP less than 5 cm. No carotid bruit. Carotid upstrokes 2+ bilaterally. CARDIOVASCULAR: Normal S1, S2. Regular rate and rhythm. No murmurs, gallops, or rubs. PMI is at fourth intercostal space in the midclavicular line. LUNGS: Clear to auscultation bilaterally. ABDOMEN: Soft, nontender, nondistended. No hepatosplenomegaly. Positive bowel sounds. EXTREMITIES: There is left lower extremity edema, erythema, and warmth. LABORATORY FINDINGS: WBC 22.7, hemoglobin 13.2, hematocrit 37.9, and platelet count is 191. Chemistry shows sodium 133, potassium 3.8, chloride 96, bicarbonate 26, BUN 36, creatinine 1.8, glucose 113, calcium 9.1. Initial troponin I level was 0.355, second troponin was 0.219 and 0.149. Triglyceride was 55, total cholesterol 127, LDL of 73, and HDL of 47. ASSESSMENT AND PLAN: This is a very unfortunate 63-year-old gentleman, seen in Cardiology consultation. 1. Slight elevation of troponin I level is and not typical for acute coronary syndrome. The patient has been chest pain free. A 12-lead electrocardiogram does not show any evidence of ischemia. Elevation of troponin I level represent non-ST elevation myocardial infarction type 2. We will obtain 2D echocardiography to assess LV systolic and diastolic function. If LVEF is less than 40%, we may decide to proceed with cardiac catheterization if the patient agrees. In the meantime, we will continue with aspirin and statin and beta-deyanira for control. 2. Sepsis likely secondary to left lower extremity cellulitis. Continue IV antibiotic therapy per ID recommendation. 3. Acute kidney injury. Continue hydration. 4. Dyslipidemia. Currently, lipid panel shows no particular abnormality of the cholesterol particles. 5. History of paroxysmal atrial fibrillation. Currently in sinus rhythm. Continue amiodarone as well as Eliquis. 6. History of CAD. The detail of which is unknown. 7. History of dementia. 8. History of hypertension. I would like to continue amlodipine. I would like to thank, Dr. Dietz, for the courtesy of this consultation. Mehdi Florian M.D. DR: DEREK JOB#: [id number] CC:
[2018-07-31 04:00] VITALS: BP 121/55
[2018-07-31] MEDS: Piperacillin/Tazobactam 3.375 GM in NS 110 ML IVPB SCH (05:26)
[2018-07-31 08:00] VITALS: BP 125/56
[2018-07-31] MEDS: Amiodarone 200mg tab ORAL SCH (10:08)
[2018-07-31] MEDS: Ascorbic Acid 500mg tab ORAL SCH ×2 (10:11→17:48)
[2018-07-31] MEDS: Docusate 250mg cap ORAL SCH ×2 (10:11→17:49)
[2018-07-31] MEDS: Thiamine 100mg tab ORAL SCH (10:11)
[2018-07-31] MEDS: Aspirin Baby 81mg ORAL SCH (10:11)
[2018-07-31] MEDS: Eliquis 2.5mg tablet ORAL SCH ×2 (10:11→17:49)
[2018-07-31 12:00] VITALS: BP 114/50
--- NOTE | 2018-07-31 14:49 | Cardiology Report ---
APPROVED REPORT EXAM: Two-dimensional and M-mode echocardiogram with Doppler and color Doppler. INDICATION Chest Pain M-Mode DIMENSIONS IVSd1.1 (0.7-1.1cm)Left Atrium (MM)4.0 (1.6-4.0cm) LVDd4.8 (3.5-5.6cm)Aortic Root3.1 (2.0-3.7cm) PWd0.8 (0.7-1.1cm)Aortic Cusp Exc.2.0 (1.5-2.0cm) LVDs2.1 (2.5-4.0cm) PWs1.9 cm Normal left ventricular chamber size, systolic function and wall motion. Left ventricular ejection fraction estimated to be 60-65 %. Borderline left ventricular hypertrophy. No evidence of pericardial effusion. All other cardiac chamber sizes are within normal limits. Mild focal aortic valve sclerosis with adequate cusp excursion. Mildly thickened mitral valve leaflets with normal excursion. Mild mitral annulus and aortic root calcification. Normal pulmonic valve structure. Normal tricuspid valve structure. IVC dilated at 2.5 cm with physiological collapse. A color flow and spectral Doppler study was performed and revealed: Trace aortic insufficiency. Trace mitral regurgitation. Normal left ventricular diastolic function. Mild tricuspid regurgitation. Tricuspid systolic velocities suggests peak right ventricular systolic pressure of 30 mmHg. Mild pulmonic regurgitation present.
[2018-07-31] MEDS: cefTRIAXone 2 GM in D5W 55 ML IVPB SCH (14:54)
--- NOTE | 2018-07-31 14:58 | Cardiology Report ---
APPROVED REPORT EKG Measurement Heart [id number] Sinus bradycardia with 1st degree AV block Nonspecific T wave abnormality Abnormal ECG
--- NOTE | 2018-07-31 15:04 | Infectious Diseases Prog Note ---
Assessment/Plan Problems: (1) Cellulitis Assessment & Plan: will switch antibiotics to ceftriaxon to treat his cellulitis and strep pyogenes bacteremia for two weeks , stop vancomycin and zosyn empirically , continue local wound care as per hospital protocol (2) Sepsis Assessment & Plan: with strep pyogenes source suspect due to cellulitis , will switch vancomycin and zosyn empirically to ceftriaxone to treat him for two weeks , will repeat blood culture to confirm clearance . echo cardiogram didn't show any vegetations. (3) LYDIA (acute kidney injury) Assessment & Plan: due to the above , continue hydration with renally dosed meds as per pharmacy (4) Lactic acidosis Assessment & Plan: due to the above, continue hydration , monitor labs Subjective Constitutional: Reports: no symptoms HEENT: Reports: no symptoms Respiratory: Reports: no symptoms Breasts: Reports: no symptoms Cardiovascular: Reports: no symptoms Gastrointestinal/Abdominal: Reports: no symptoms Genitourinary: Reports: no symptoms Neurologic: Reports: no symptoms Psychiatric: Reports: no symptoms Skin: Reports: ulcer, other - cellulitis Endocrine: Reports: no symptoms Hematologic: Reports: no symptoms Musculoskeletal: Reports: no symptoms Allergies: Coded Allergies: No Known Allergies (Unverified , 07/29/18) Objective Vital Signs Last 24 Hour Vital Signs Date Time Temp Pulse Resp B/P (MAP) Pulse Ox O2 Delivery O2 Flow Rate FiO2 07/31/18 10:41 98.7 07/31/18 10:12 54 07/31/18 10:09 59 125/56 07/31/18 09:00 Nasal Cannula 2.0 07/31/18 08:00 59 07/31/18 08:00 99.1 58 22 125/56 (79) 96 07/31/18 04:00 52 07/31/18 04:00 98.0 53 20 121/55 (77) 100 07/31/18 00:00 98.1 56 20 127/54 (78) 94 07/31/18 00:00 55 07/30/18 21:00 Nasal Cannula 2.0 07/30/18 20:00 55 07/30/18 20:00 98.4 55 22 121/53 (75) 99 07/30/18 16:00 98.3 52 18 112/50 (70) 99 07/30/18 16:00 53 Height (Feet): 5 Height (Inches): 9.00 Weight (Pounds): 167 General Appearance: WD/WN, no acute distress HEENT: normocephalic, atraumatic, anicteric, mucous membranes moist, PERRL, pharynx normal, supple, no JVD Respiratory/Chest: chest wall non-tender, lungs clear, normal breath sounds, no respiratory distress, no accessory muscle use Cardiovascular: normal peripheral pulses, normal rate, regular rhythm, no gallop/murmur, no JVD Abdomen: normal bowel sounds, soft, non tender, no organomegaly, non distended , no mass, no scars Extremities: no cyanosis, no clubbing Skin: no rash, no lesions, ulcers Neurologic/Psychiatric: alert, responsive Lymphatic: no neck adenopathy, no groin adenopathy Microbiology Date/Time Source Procedure Growth Status 07/29/18 17:25 Blood Blood Culture - Preliminary Streptococcus Pyogenes Grp A Resulted 07/29/18 17:20 Blood Blood Culture - Preliminary Streptococcus Pyogenes Grp A Resulted 07/29/18 18:10 Nasal Nares MRSA Culture - Final NO METHICILLIN RESISTANT STAPH AUREUS... Complete 07/29/18 17:20 Nasal Nares Influenza Types A,B Antigen (SAHIL) - Final Complete 07/29/18 18:10 Rectum VRE Culture - Final NO VANCOMYCIN RESISTANT ENTEROCOCCUS ... Complete 07/29/18 18:10 Rectum - Final NO CARBAPENEM-RESISTANT ENTEROBACTERI... Complete Laboratory Tests Test 07/31/18 08:58 Troponin I 0.067 ng/mL (0.000-0.056) Current Medications Medications (Trade) Dose Ordered Sig/Gomez Route PRN Reason Start Time Stop Time Status Last Admin Dose Admin Acetaminophen (Tylenol) 650 mg Q4H PRN ORAL Mild Pain/Temp > 100.5 07/29/18 23:00 08/28/18 22:59 07/31/18 10:11 Amiodarone HCl (Cordarone) 200 mg EVERY 12 HOURS ORAL 07/30/18 09:00 08/29/18 08:59 07/31/18 10:08 Amlodipine Besylate (Norvasc) 10 mg DAILY ORAL 07/30/18 09:00 08/29/18 08:59 07/31/18 10:09 Apixaban (Eliquis) 5 mg BID ORAL 07/30/18 09:00 08/29/18 08:59 07/31/18 10:11 Ascorbic Acid (Vitamin C) 500 mg TWICE A DAY ORAL 07/30/18 09:00 08/29/18 08:59 07/31/18 10:11 Aspirin (ASA) 81 mg DAILY ORAL 07/30/18 09:00 08/29/18 08:59 07/31/18 10:11 Ceftriaxone Sodium 2 gm/ Dextrose 55 ml @ 110 mls/hr Q24H IVPB 07/31/18 14:00 08/07/18 13:59 07/31/18 14:54 Digoxin (Lanoxin) 0.25 mg DAILY ORAL 07/30/18 09:00 08/29/18 08:59 07/30/18 09:09 Docusate Sodium (Colace) 250 mg TWICE A DAY ORAL 07/30/18 09:00 08/29/18 08:59 07/31/18 10:11 Folic Acid (Folate) 1 mg DAILY ORAL 07/30/18 09:00 08/29/18 08:59 07/31/18 10:11 Lorazepam (Ativan) 2 mg Q6H PRN ORAL For Anxiety 07/30/18 20:30 08/06/18 20:29 Morphine Sulfate (Morphine Sulfate) 2 mg Q8HR PRN IVP For Pain 07/29/18 23:00 08/05/18 22:59 Pantoprazole (Protonix) 40 mg DAILY ORAL 07/30/18 09:00 08/29/18 08:59 07/31/18 10:09 Temazepam (Restoril) 15 mg HSPRN PRN ORAL Insomnia 07/30/18 20:30 08/06/18 20:29 Thiamine HCl (Vitamin B1) 100 mg DAILY ORAL 07/30/18 09:00 08/29/18 08:59 07/31/18 10:11 Beverley Danielson M.D. Jul 31, 2018 15:04
--- NOTE | 2018-07-31 15:05 | Cardiology Report ---
APPROVED REPORT EKG Measurement Heart [id number] Atrial fibrillation Prolonged QT Abnormal ECG
--- NOTE | 2018-07-31 15:25 | Cardiology Progress Note ---
Assessment/Plan Assessment/Plan 1. Slight elevation of troponin I level, plateaued, not typical for acute coronary syndrome, chest pain free. No ischemia on the ECG. 2D echocardiography reveals normal LV systolic and diastolic function, continue aspirin, statin and beta-blockers. 2. Sepsis likely secondary to left lower extremity cellulitis. Continue IV antibiotic therapy per ID recommendation. 3. Acute kidney injury, resolving. Continue hydration. 4. Hx of Dyslipidemia. Normal lipid panel. 5. History of paroxysmal atrial fibrillation, DC amiodarone in view of QD prolongation, may resume in a week with a lower dose 200mg daily. Currently in sinus rhythm. Continue Eliquis. Subjective Subjective Sinus bradycardia at 55. Objective Last 24 Hour Vital Signs Date Time Temp Pulse Resp B/P (MAP) Pulse Ox O2 Delivery O2 Flow Rate FiO2 07/31/18 12:00 98.8 55 24 114/50 (71) 95 07/31/18 10:41 98.7 07/31/18 10:12 54 07/31/18 10:09 59 125/56 07/31/18 09:00 Nasal Cannula 2.0 07/31/18 08:00 59 07/31/18 08:00 99.1 58 22 125/56 (79) 96 07/31/18 04:00 52 07/31/18 04:00 98.0 53 20 121/55 (77) 100 07/31/18 00:00 98.1 56 20 127/54 (78) 94 07/31/18 00:00 55 07/30/18 21:00 Nasal Cannula 2.0 07/30/18 20:00 55 07/30/18 20:00 98.4 55 22 121/53 (75) 99 07/30/18 16:00 98.3 52 18 112/50 (70) 99 07/30/18 16:00 53 Intake and Output 07/30/18 07/31/18 19:00 07:00 Intake Total 620 ml 153.30 ml Output Total 400 ml Balance 620 ml -246.70 ml Intake Oral 620 ml IV Total 153.30 ml Output Urine Total 400 ml # Bowel Movements 5 Laboratory Tests Test 07/31/18 08:58 Troponin I 0.067 ng/mL (0.000-0.056) Microbiology Date/Time Source Procedure Growth Status 07/29/18 17:25 Blood Blood Culture - Preliminary Streptococcus Pyogenes Grp A Resulted 07/29/18 17:20 Blood Blood Culture - Preliminary Streptococcus Pyogenes Grp A Resulted 07/29/18 18:10 Nasal Nares MRSA Culture - Final NO METHICILLIN RESISTANT STAPH AUREUS... Complete 07/29/18 17:20 Nasal Nares Influenza Types A,B Antigen (SAHIL) - Final Complete 07/29/18 18:10 Rectum VRE Culture - Final NO VANCOMYCIN RESISTANT ENTEROCOCCUS ... Complete 07/29/18 18:10 Rectum - Final NO CARBAPENEM-RESISTANT ENTEROBACTERI... Complete Mehdi Florian MD Jul 31, 2018 15:25
[2018-07-31 16:00] VITALS: BP 105/47
--- NOTE | 2018-07-31 19:31 | General Progress Note ---
Assessment/Plan Status: stable Assessment/Plan anxiety d/o ativan prn restoril prn Subjective Neurologic/Psychiatric: Reports: anxiety, depressed Allergies: Coded Allergies: No Known Allergies (Unverified , 07/29/18) Subjective the pt was somewhat confused didn't know where he was Objective Last 24 Hour Vital Signs Date Time Temp Pulse Resp B/P (MAP) Pulse Ox O2 Delivery O2 Flow Rate FiO2 07/31/18 16:00 50 07/31/18 16:00 97.9 50 18 105/47 (66) 97 07/31/18 12:00 98.8 55 24 114/50 (71) 95 07/31/18 12:00 52 07/31/18 10:41 98.7 07/31/18 10:12 54 07/31/18 10:09 59 125/56 07/31/18 09:00 Nasal Cannula 2.0 07/31/18 08:00 59 07/31/18 08:00 99.1 58 22 125/56 (79) 96 07/31/18 04:00 52 07/31/18 04:00 98.0 53 20 121/55 (77) 100 07/31/18 00:00 98.1 56 20 127/54 (78) 94 07/31/18 00:00 55 07/30/18 21:00 Nasal Cannula 2.0 07/30/18 20:00 55 07/30/18 20:00 98.4 55 22 121/53 (75) 99 Intake and Output 07/30/18 07/31/18 19:00 07:00 Intake Total 620 ml 153.30 ml Output Total 400 ml Balance 620 ml -246.70 ml Intake Oral 620 ml IV Total 153.30 ml Output Urine Total 400 ml # Bowel Movements 5 Laboratory Tests 07/31/18 08:58: Troponin I 0.067H Height (Feet): 5 Height (Inches): 9.00 Weight (Pounds): 167 General Appearance: no apparent distress, alert Isabel Tse MD Jul 31, 2018 19:31
[2018-07-31 19:59] VITALS: BP 124/56
[2018-08-01] VITALS: BP 124/58
[2018-08-01 04:00] VITALS: BP 126/56
[2018-08-01 08:00] VITALS: BP 130/60
--- NOTE | 2018-08-01 08:18 | General Progress Note ---
Assessment/Plan Assessment/Plan S: I am doing better O: appears comfortable, denies having severe pain PHYSICAL EXAMINATION: HEAD AND NECK: Atraumatic and normocephalic. CHEST: Clear to auscultation. HEART: S1 and S2. Regular rate and rhythm. ABDOMEN: Soft. No organomegaly. MUSCULOSKELETAL: No gross lateralized motor deficits. Positive for diffuse erythema in the lower extremities. NEUROLOGIC: Awake, alert, and oriented x3. Medication : reveiwed and reconcilled. including Ceftriaxon ASSESSMENT AND PLAN: 1. Sepsis likely lower extremity cellulitis. with Gr positive strep bacteremia 2. Abnormal troponin possibly of non-ST CA cannot be excluded. 3. History of paroxysmal atrial fibrillation. Continue with the outpatient medication. 4. Anemia. 5. Hypertension. 6. GI and DVT prophylaxis. Plan: likely Trop leakage current antibiotic Subjective Allergies: Coded Allergies: No Known Allergies (Unverified , 07/29/18) Objective Last 24 Hour Vital Signs Date Time Temp Pulse Resp B/P (MAP) Pulse Ox O2 Delivery O2 Flow Rate FiO2 08/01/18 04:00 97.5 54 20 126/56 (79) 100 08/01/18 04:00 54 08/01/18 01:14 Nasal Cannula 2.0 28 08/01/18 01:14 98 Nasal Cannula 2.0 28 08/01/18 00:00 98.0 62 20 124/58 (80) 98 08/01/18 00:00 52 07/31/18 21:00 Nasal Cannula 2.0 07/31/18 20:00 54 07/31/18 19:59 98.1 60 22 124/56 (78) 95 07/31/18 16:00 50 07/31/18 16:00 97.9 50 18 105/47 (66) 97 07/31/18 12:00 98.8 55 24 114/50 (71) 95 07/31/18 12:00 52 07/31/18 10:41 98.7 07/31/18 10:12 54 07/31/18 10:09 59 125/56 07/31/18 09:00 Nasal Cannula 2.0 Intake and Output 07/31/18 08/01/18 19:00 07:00 Intake Total 300 ml 300 ml Output Total 750 ml 550 ml Balance -450 ml -250 ml Intake Oral 300 ml 300 ml Output Urine Total 750 ml 550 ml Laboratory Tests 07/31/18 08:58: Troponin I 0.067H Height (Feet): 5 Height (Inches): 9.00 Weight (Pounds): 167 Randy Dietz MD Aug 01, 2018 08:18
[2018-08-01] MEDS: Eliquis 2.5mg tablet ORAL SCH ×2 (08:28→17:21)
[2018-08-01] MEDS: Thiamine 100mg tab ORAL SCH (08:28)
[2018-08-01] MEDS: Docusate 250mg cap ORAL SCH ×2 (08:28→17:21)
[2018-08-01] MEDS: Aspirin Baby 81mg ORAL SCH (08:28)
[2018-08-01] MEDS: Ascorbic Acid 500mg tab ORAL SCH ×2 (08:29→17:22)
[2018-08-01] MEDS ORDERED: Tubing IV Secondary IV ONE (08:50)
[2018-08-01 12:00] VITALS: BP 123/57
[2018-08-01] MEDS: cefTRIAXone 2 GM in D5W 55 ML IVPB SCH (13:53)
[2018-08-01 16:00] VITALS: BP 125/52
[2018-08-01 20:00] VITALS: BP 124/72
--- NOTE | 2018-08-01 23:19 | Consultation ---
Mehdi Florian MD Aug 01, 2018 23:19
[2018-08-02] VITALS: BP 115/68
[2018-08-02 04:00] VITALS: BP 120/68
[2018-08-02 07:41] LABS: BASOPHILS % (AUTO) 0.9 % (0.0-2.0); EOSINOPHILS % (AUTO) 3.1 % (0.0-3.0); HEMOGLOBIN 12.9 G/DL (14.2-18.0); LYMPHOCYTES % (AUTO) 25.5 % (20.0-45.0); MEAN CORPUSCULAR VOLUME 91 FL (80-99); NEUTROPHILS % (AUTO) 59.6 % (45.0-75.0); PLATELET COUNT 199 K/UL (150-450); RED BLOOD COUNT 4.06 M/UL (4.70-6.10); RED CELL DISTRIBUTION WIDTH 12.2 % (11.6-14.8); WHITE BLOOD COUNT 4.8 K/UL (4.8-10.8)
[2018-08-02 08:00] VITALS: BP 115/54
[2018-08-02 08:04] LABS: ALANINE AMINOTRANSFERASE 59 U/L (12-78); ALBUMIN 2.6 G/DL (3.4-5.0); ALBUMIN/GLOBULIN RATIO 0.5 (1.0-2.7); ALKALINE PHOSPHATASE 150 U/L (46-116); ANION GAP 7 mmol/L (5-15); ASPARTATE AMINO TRANSFERASE 91 U/L (15-37); BILIRUBIN,TOTAL 0.6 MG/DL (0.2-1.0); BLOOD UREA NITROGEN 7 mg/dL (7-18); CALCIUM 8.5 MG/DL (8.5-10.1); CARBON DIOXIDE 26 MMOL/L (21-32); CHLORIDE 105 MMOL/L (98-107); CREATININE 0.9 MG/DL (0.55-1.30); POTASSIUM 3.6 MMOL/L (3.5-5.1); SODIUM 138 MMOL/L (136-145)
[2018-08-02] MEDS: Thiamine 100mg tab ORAL SCH (09:17)
[2018-08-02] MEDS: Docusate 250mg cap ORAL SCH (09:17)
[2018-08-02] MEDS: Ascorbic Acid 500mg tab ORAL SCH (09:18)
[2018-08-02] MEDS: Eliquis 2.5mg tablet ORAL SCH (09:19)
[2018-08-02] MEDS: Aspirin Baby 81mg ORAL SCH (09:19)
--- NOTE | 2018-08-02 10:49 | General Progress Note ---
Assessment/Plan Assessment/Plan S: I am doing better O: appears comfortable, denies having severe pain PHYSICAL EXAMINATION: HEAD AND NECK: Atraumatic and normocephalic. CHEST: Clear to auscultation. HEART: S1 and S2. Regular rate and rhythm. ABDOMEN: Soft. No organomegaly. MUSCULOSKELETAL: No gross lateralized motor deficits. Positive for diffuse erythema in the lower extremities. NEUROLOGIC: Awake, alert, and oriented x3. Medication : reveiwed and reconcilled. including Ceftriaxon ASSESSMENT AND PLAN: 1. Sepsis likely lower extremity cellulitis. with Gr positive strep bacteremia 2. Abnormal troponin possibly of non-ST ND cannot be excluded. 3. History of paroxysmal atrial fibrillation. Continue with the outpatient medication. 4. Anemia. 5. Hypertension. 6. GI and DVT prophylaxis. Plan: likely Trop leakage current antibiotic in [facility] for completion of two weeks Subjective Allergies: Coded Allergies: No Known Allergies (Unverified , 07/29/18) Objective Last 24 Hour Vital Signs Date Time Temp Pulse Resp B/P (MAP) Pulse Ox O2 Delivery O2 Flow Rate FiO2 08/02/18 09:18 56 08/02/18 09:18 56 115/54 08/02/18 09:00 Nasal Cannula 2.0 08/02/18 08:00 98.7 56 18 115/54 (74) 96 56 08/02/18 07:39 61 08/02/18 04:00 98.7 65 21 120/68 (85) 100 08/02/18 04:00 51 08/02/18 00:00 58 08/02/18 00:00 98.8 60 20 115/68 (84) 99 08/01/18 21:00 Nasal Cannula 2.0 08/01/18 20:00 97.0 52 20 124/72 (89) 95 08/01/18 20:00 51 08/01/18 16:00 98.2 53 18 125/52 (76) 97 08/01/18 16:00 54 08/01/18 12:00 54 08/01/18 12:00 98.3 53 18 123/57 (79) 98 Intake and Output 08/01/18 08/02/18 18:59 06:59 Intake Total 360 ml Output Total 850 ml 800 ml Balance -490 ml -800 ml Intake Oral 360 ml Output Urine Total 850 ml 800 ml Laboratory Tests 08/02/18 06:09: White Blood Count 4.8, Red Blood Count 4.06L, Hemoglobin 12.9L, Hematocrit 37.0L , Mean Corpuscular Volume 91, Mean Corpuscular Hemoglobin 31.9H, Mean Corpuscular Hemoglobin Concent 35.0, Red Cell Distribution Width 12.2, Platelet Count 199, Mean Platelet Volume 7.1, Neutrophils (%) (Auto) 59.6, Lymphocytes (% ) (Auto) 25.5, Monocytes (%) (Auto) 11.0H, Eosinophils (%) (Auto) 3.1H, Basophils (%) (Auto) 0.9, Sodium Level 138, Potassium Level 3.6, Chloride Level 105, Carbon Dioxide Level 26, Anion Gap 7, Blood Urea Nitrogen 7, Creatinine 0.9 , Estimat Glomerular Filtration Rate > 60, Glucose Level 88, Calcium Level 8.5, Total Bilirubin 0.6, Aspartate Amino Transf (AST/SGOT) 91H, Alanine Aminotransferase (ALT/SGPT) 59, Alkaline Phosphatase 150H, Total Protein 7.7, Albumin 2.6L, Globulin 5.1, Albumin/Globulin Ratio 0.5L Height (Feet): 5 Height (Inches): 9.00 Weight (Pounds): 167 Randy Dietz MD Aug 02, 2018 10:49
[2018-08-02 12:00] VITALS: BP 138/64
[2018-08-02] MEDS: cefTRIAXone 2 GM in D5W 55 ML IVPB SCH (14:00)
--- NOTE | 2018-08-02 14:26 | Infectious Diseases Prog Note ---
Assessment/Plan Problems: (1) Cellulitis Assessment & Plan: continue ceftriaxone to treat his cellulitis and strep pyogenes bacteremia for two weeks , continue local wound care as per hospital protocol (2) Sepsis Assessment & Plan: with strep pyogenes source suspect due to cellulitis , will continue ceftriaxone to treat him for two weeks , will repeat blood culture to confirm clearance . echo cardiogram didn't show any vegetations. EOT 08/14/18 (3) LYDIA (acute kidney injury) Assessment & Plan: due to the above , continue hydration with renally dosed meds as per pharmacy Subjective Constitutional: Reports: no symptoms HEENT: Reports: no symptoms Respiratory: Reports: no symptoms Breasts: Reports: no symptoms Cardiovascular: Reports: no symptoms Gastrointestinal/Abdominal: Reports: no symptoms Genitourinary: Reports: no symptoms Neurologic: Reports: no symptoms Psychiatric: Reports: no symptoms Skin: Reports: no symptoms Endocrine: Reports: no symptoms Hematologic: Reports: no symptoms Musculoskeletal: Reports: no symptoms Allergies: Coded Allergies: No Known Allergies (Unverified , 07/29/18) Objective Vital Signs Last 24 Hour Vital Signs Date Time Temp Pulse Resp B/P (MAP) Pulse Ox O2 Delivery O2 Flow Rate FiO2 08/02/18 12:00 98.4 56 18 138/64 (88) 95 56 08/02/18 09:18 56 08/02/18 09:18 56 115/54 08/02/18 09:00 Nasal Cannula 2.0 08/02/18 08:00 98.7 56 18 115/54 (74) 96 56 08/02/18 07:39 61 08/02/18 04:00 98.7 65 21 120/68 (85) 100 08/02/18 04:00 51 08/02/18 00:00 58 08/02/18 00:00 98.8 60 20 115/68 (84) 99 08/01/18 21:00 Nasal Cannula 2.0 08/01/18 20:00 97.0 52 20 124/72 (89) 95 08/01/18 20:00 51 08/01/18 16:00 98.2 53 18 125/52 (76) 97 08/01/18 16:00 54 Height (Feet): 5 Height (Inches): 9.00 Weight (Pounds): 167 General Appearance: WD/WN, no acute distress HEENT: normocephalic, atraumatic, anicteric, mucous membranes moist, PERRL Respiratory/Chest: chest wall non-tender, lungs clear, normal breath sounds, no respiratory distress, no accessory muscle use Cardiovascular: normal peripheral pulses, normal rate, regular rhythm, no gallop/murmur, no JVD Abdomen: normal bowel sounds, soft, non tender, no organomegaly, non distended , no mass, no scars Extremities: no cyanosis, no clubbing Skin: no rash, no lesions Neurologic/Psychiatric: alert, oriented x 3, responsive Lymphatic: no neck adenopathy, no groin adenopathy Musculoskeletal: normal muscle bulk, no effusion Microbiology Date/Time Source Procedure Growth Status 07/31/18 15:30 Blood Blood Culture - Preliminary NO GROWTH AFTER 24 HOURS Resulted 07/31/18 15:15 Blood Blood Culture - Preliminary NO GROWTH AFTER 24 HOURS Resulted Laboratory Tests Test 08/02/18 06:09 White Blood Count 4.8 K/UL (4.8-10.8) Red Blood Count 4.06 M/UL (4.70-6.10) L Hemoglobin 12.9 G/DL (14.2-18.0) L Hematocrit 37.0 % (42.0-52.0) L Mean Corpuscular Volume 91 FL (80-99) Mean Corpuscular Hemoglobin 31.9 PG (27.0-31.0) H Mean Corpuscular Hemoglobin Concent 35.0 G/DL (32.0-36.0) Red Cell Distribution Width 12.2 % (11.6-14.8) Platelet Count 199 K/UL (150-450) Mean Platelet Volume 7.1 FL (6.5-10.1) Neutrophils (%) (Auto) 59.6 % (45.0-75.0) Lymphocytes (%) (Auto) 25.5 % (20.0-45.0) Monocytes (%) (Auto) 11.0 % (1.0-10.0) H Eosinophils (%) (Auto) 3.1 % (0.0-3.0) H Basophils (%) (Auto) 0.9 % (0.0-2.0) Sodium Level 138 MMOL/L (136-145) Potassium Level 3.6 MMOL/L (3.5-5.1) Chloride Level 105 MMOL/L (98-107) Carbon Dioxide Level 26 MMOL/L (21-32) Anion Gap 7 mmol/L (5-15) Blood Urea Nitrogen 7 mg/dL (7-18) Creatinine 0.9 MG/DL (0.55-1.30) Estimat Glomerular Filtration Rate > 60 mL/min (>60) Glucose Level 88 MG/DL (74-106) Calcium Level 8.5 MG/DL (8.5-10.1) Total Bilirubin 0.6 MG/DL (0.2-1.0) Aspartate Amino Transf (AST/SGOT) 91 U/L (15-37) H Alanine Aminotransferase (ALT/SGPT) 59 U/L (12-78) Alkaline Phosphatase 150 U/L (46-116) H Total Protein 7.7 G/DL (6.4-8.2) Albumin 2.6 G/DL (3.4-5.0) L Globulin 5.1 g/dL Albumin/Globulin Ratio 0.5 (1.0-2.7) L Current Medications Medications (Trade) Dose Ordered Sig/Gomez Route PRN Reason Start Time Stop Time Status Last Admin Dose Admin Acetaminophen (Tylenol) 650 mg Q4H PRN ORAL Mild Pain/Temp > 100.5 07/29/18 23:00 08/28/18 22:59 07/31/18 10:11 Amlodipine Besylate (Norvasc) 10 mg DAILY ORAL 07/30/18 09:00 08/29/18 08:59 08/02/18 09:18 Apixaban (Eliquis) 5 mg BID ORAL 07/30/18 09:00 08/29/18 08:59 08/02/18 09:19 Ascorbic Acid (Vitamin C) 500 mg TWICE A DAY ORAL 07/30/18 09:00 08/29/18 08:59 08/02/18 09:18 Aspirin (ASA) 81 mg DAILY ORAL 07/30/18 09:00 08/29/18 08:59 08/02/18 09:19 Ceftriaxone Sodium 2 gm/ Dextrose 55 ml @ 110 mls/hr Q24H IVPB 07/31/18 14:00 08/07/18 13:59 08/01/18 13:53 Digoxin (Lanoxin) 0.25 mg DAILY ORAL 07/30/18 09:00 08/29/18 08:59 08/02/18 09:18 Docusate Sodium (Colace) 250 mg TWICE A DAY ORAL 07/30/18 09:00 08/29/18 08:59 08/02/18 09:17 Folic Acid (Folate) 1 mg DAILY ORAL 07/30/18 09:00 08/29/18 08:59 08/02/18 09:17 Lorazepam (Ativan) 2 mg Q6H PRN ORAL For Anxiety 07/30/18 20:30 08/06/18 20:29 Morphine Sulfate (Morphine Sulfate) 2 mg Q8HR PRN IVP For Pain 07/29/18 23:00 08/05/18 22:59 Pantoprazole (Protonix) 40 mg DAILY ORAL 07/30/18 09:00 08/29/18 08:59 08/02/18 09:19 Temazepam (Restoril) 15 mg HSPRN PRN ORAL Insomnia 07/30/18 20:30 08/06/18 20:29 Thiamine HCl (Vitamin B1) 100 mg DAILY ORAL 07/30/18 09:00 08/29/18 08:59 08/02/18 09:17 Beverley Danielson M.D. Aug 02, 2018 14:26
[2018-08-02 16:00] VITALS: BP 135/61
--- NOTE | 2018-08-02 23:07 | General Progress Note ---
Assessment/Plan Status: stable, progressing Assessment/Plan anxiety d/o ativan prn restoril prn Subjective Neurologic/Psychiatric: Reports: anxiety, depressed, emotional problems Allergies: Coded Allergies: No Known Allergies (Unverified , 07/29/18) Subjective the pt was somewhat confused Objective Last 24 Hour Vital Signs Date Time Temp Pulse Resp B/P (MAP) Pulse Ox O2 Delivery O2 Flow Rate FiO2 08/02/18 16:00 97.9 51 18 135/61 (85) 97 51 08/02/18 12:00 98.4 56 18 138/64 (88) 95 56 08/02/18 09:18 56 08/02/18 09:18 56 115/54 08/02/18 09:00 Nasal Cannula 2.0 08/02/18 08:00 98.7 56 18 115/54 (74) 96 56 08/02/18 07:39 61 08/02/18 04:00 98.7 65 21 120/68 (85) 100 08/02/18 04:00 51 08/02/18 00:00 58 08/02/18 00:00 98.8 60 20 115/68 (84) 99 Intake and Output 08/01/18 08/02/18 19:00 07:00 Intake Total 360 ml Output Total 850 ml 800 ml Balance -490 ml -800 ml Intake Oral 360 ml Output Urine Total 850 ml 800 ml Laboratory Tests 08/02/18 06:09: White Blood Count 4.8, Red Blood Count 4.06L, Hemoglobin 12.9L, Hematocrit 37.0L , Mean Corpuscular Volume 91, Mean Corpuscular Hemoglobin 31.9H, Mean Corpuscular Hemoglobin Concent 35.0, Red Cell Distribution Width 12.2, Platelet Count 199, Mean Platelet Volume 7.1, Neutrophils (%) (Auto) 59.6, Lymphocytes (% ) (Auto) 25.5, Monocytes (%) (Auto) 11.0H, Eosinophils (%) (Auto) 3.1H, Basophils (%) (Auto) 0.9, Sodium Level 138, Potassium Level 3.6, Chloride Level 105, Carbon Dioxide Level 26, Anion Gap 7, Blood Urea Nitrogen 7, Creatinine 0.9 , Estimat Glomerular Filtration Rate > 60, Glucose Level 88, Calcium Level 8.5, Total Bilirubin 0.6, Aspartate Amino Transf (AST/SGOT) 91H, Alanine Aminotransferase (ALT/SGPT) 59, Alkaline Phosphatase 150H, Total Protein 7.7, Albumin 2.6L, Globulin 5.1, Albumin/Globulin Ratio 0.5L Height (Feet): 5 Height (Inches): 9.00 Weight (Pounds): 167 General Appearance: no apparent distress, alert Neurologic: alert, responsive, depressed affect Isabel Tse MD Aug 02, 2018 23:07
--- NOTE | 2018-08-03 16:43 | Cardiology Report ---
APPROVED REPORT EKG Measurement Heart [id number] Sinus bradycardia with 1st degree AV block Otherwise normal ECG
--- NOTE | 2018-08-04 14:48 | Discharge Summary ---
Discharge Summary Discharge Summary _ DATE OF ADMISSION: 07/29/2018 DATE OF DISCHARGE: 08/02/2018 REASON FOR ADMISSION: 63 years old male with past medical history of hypertension, atrial fibrillation, anemia, presented from the residential facility for evaluation of fever . Upon evaluation patient was febrile 102.6. Physical exam revealed clinical evidence of bilateral lower extremities cellulitis. Laboratory workup revealed significant leukocytosis WBC 22.5. Hemoglobin 13.2 ,hematocrit 37.9 BUN 36 , creatinine 1.8. Lactic acid 2.9 . Troponin - 0.355. EKG revealed atrial fibrillation with controlled ventricular response. Chest x-ray revealed no acute cardiopulmonary pathology. Patient admitted with diagnosis of sepsis, cellulitis, elevated troponin acute kidney injury lactic acidosis CONSULTANTS: senior sourcing manager Dr. Florian ID specialist Dr. Danielson psychiatrist [facility] COURSE: Patient admitted to telemetry floor. Cardiology consult was requested. Patient started on IV fluids and empiric antibiotics. Serial troponin trending down, last troponin- 0.067. Echocardiogram revealed preserved ejection fraction and no evidence of wall motion abnormality. According to senior sourcing manager, troponin levels were mildly elevated,flat and not typical for acute myocardial infarction pattern. In addition patient had no chest pain, no ischemic changes on EKG, and echocardiogram revealed preserved ejection fraction. Elevated troponin was likely secondary to acute kidney injury , trending down. Patient was on antiplatelet therapy with aspirin, beta deyanira and statin. Lipid panel was stable. Patient with history of paroxysmal atrial fibrillation. Amiodarone was discontinued in view of QT prolongation. Per senior sourcing manager, amiodarone may be resumed on the lower dose of 200 mg daily in one week. Patient wall in sinus rhythm. Anticoagulation with Eliquis was continued. Infectious disease specialist closely followed. Blood culture revealed Streptococci pyogenes group A. Repeated blood culture on were negative. Antibiotic regimen optimized per ID specialist recommendations. Leukocytosis resolved no further fevers. Patient will need 2 weeks of antibiotics in the residential facility. DVT and GI prophylaxis provided. Blood pressure was stable with the current regimen. Renal parameters electrolytes were closely monitored. Acute kidney injury resolved with the IV fluid hydration . Prior to discharge BUN 7, creatinine 0.9 . Acute kidney injury was likely multifactorial due to sepsis and dehydration, Hemoglobin and hematocrit were closely monitored , remained at the baseline. Psychiatrist seen and evaluated patient , diagnosed patient with anxiety disorder. Reality orientation and supportive therapy provided. Patient clinically improved and was ready for discharge back to residential facility for continuation of care FINAL DIAGNOSES: Sepsis with Streptococci pyogenes bacteremia due to cellulitis bilateral lower extremity Cellulitis bilateral lower extremity Acute kidney injury -resolved Elevated troponin, - trending down /likely secondary to LYDIA History of paroxysmal atrial fibrillation Hypertension Anxiety disorder Mild anemia DISCHARGE MEDICATIONS: See Medication Reconciliation list. DISCHARGE INSTRUCTIONS: Patient was discharged to the residential facility. Follow up with medical doctor at the facility. I have been assigned to dictate discharge summary for this account. I was not involved in the patient's management. Belkis Almanza NP Aug 04, 2018 14:48
== END 2018-08-02 16:55 | DRG 872 ==
LOC: EDBD 16:52 → EMR 19:56 → 2E 19:59 → EDBEDREQ 20:11 → 2E 07-30 17:16
DX: A40.0 Sepsis due to streptococcus, group A (principal); L03.116 Cellulitis of left lower limb; L03.115 Cellulitis of right lower limb; N17.9 Acute kidney failure, unspecified; I48.0 Paroxysmal atrial fibrillation; I10 Essential (primary) hypertension; F41.9 Anxiety disorder, unspecified; D64.9 Anemia, unspecified; E86.0 Dehydration; I25.10 Atherosclerotic heart disease of native coronary artery without angina pectoris; I44.0 Atrioventricular block, first degree; E78.5 Hyperlipidemia, unspecified
CPT/HCPCS: 36415; 71045; 80053; 80061; 81003; 82550; 82553; 83036; 83605; 84484; 85007; 85025; 86710; 87040; 87081; 87181; 93005; 93306; 94760; 96361; 96365; 96367; 99291